=== PATIENT | male | born 1995 | race Caucasian/White ===

== ENCOUNTER 2024-08-30 14:50 | Observation (INO) | payer MEDICARE ==
--- NOTE | 2024-08-30 15:32 | ED ---
Skin/Abscess/FB HPI - General Chief complaint: Skin/Abscess/Foreign Body Stated complaint: Spider Bite Time Seen by Provider: 08/30/24 15:04 Source: patient, RN notes reviewed, Caregiver Mode of arrival: ambulatory Limitations: no limitations - History of Present Illness Initial comments: This is a 28-year-old male presenting for episodes of right wrist x 4 days. Patient states he was bitten by an insect while sleeping Wednesday morning with worsening erythema and edema surrounding bite since that time. Patient endorses going to [facility] yesterday where the abscess was expressed and packed. Patient states he was provided IV clindamycin and discharged with clindamycin regiment, which he has been taking. Patient states like you are on did not o btain a wound culture at the time and that abscess is worsening with increasing erythema, red streaking and additional purulent discharge. Patient states his PCP was concerned for possible brown recluse bite. Denies fever, chills, fatigue, chest pain, dyspnea, abdominal pain, N/V/D. MD complaint: insect bite/sting, abscess/boil Onset/Timin -: days(s) - Related Data Home Medications Medication Instructions Recorded Confirmed Cholecalciferol (Vitamin D3) 50 mcg PO DAILY 08/30/24 08/30/24 [Vitamin D3 (50 Mcg = 2000 Iu)] Clindamycin Topical Soln 1 applic TOPICAL BID 08/30/24 08/30/24 [Cleocin-T Topical Soln] Mirtazapine [Remeron] 15 mg PO HS 08/30/24 08/30/24 clindamycin HCL [Cleocin] 150 mg PO Q8H 08/30/24 08/30/24 Allergies Allergy/AdvReac Type Severity Reaction Status Date / Time No Known Allergies Allergy Verified 08/30/24 18:00 Review of Systems ROS Statement: Those systems with pertinent positive or pertinent negative responses have been documented in the HPI. ROS Other: All systems not noted in ROS Statement are negative. Past Medical History Past Medical History: No Reported History Additional Past Medical History / Comment(s): intellectual disability History of Any Multi-Drug Resistant Organisms: None Reported Past Surgical History: No Surgical Hx Reported Past Psychological History: Depression Smoking Status: Never smoker Past Alcohol Use History: None Reported Past Drug Use History: None Reported General Exam Limitations: no limitations General appearance: alert, in no apparent distress Head exam: Present: atraumatic, normocephalic, normal inspection Eye exam: Present: normal appearance, PERRL, EOMI. Absent: scleral icterus, conjunctival injection, periorbital swelling ENT exam: Present: normal exam, mucous membranes moist Neck exam: Present: normal inspection. Absent: tenderness, meningismus, lymphadenopathy Respiratory exam: Present: normal lung sounds bilaterally. Absent: respiratory distress, wheezes, rales, rhonchi, stridor Cardiovascular Exam: Present: regular rate, normal rhythm, normal heart sounds. Absent: systolic murmur, diastolic murmur, rubs, gallop, clicks GI/Abdominal exam: Present: soft, normal bowel sounds. Absent: distended, tenderness, guarding, rebound, rigid Extremities exam: Present: full ROM, tenderness, normal capillary refill, other (Right dorsal wrist: Dark erythema surrounding 1 cm circular open wound with extensive erythema spreading to hand and to mid forearm. Purulent discharge noted from opening and moderate edema of dorsal hand noted. No obvious red streaking, pain with passive wrist flexion. Distal neurovascular intact). Absent: pedal edema, joint swelling, calf tenderness Back exam: Present: normal inspection Neurological exam: Present: alert, oriented X3, CN II-XII intact Psychiatric exam: Present: normal affect, normal mood Skin exam: Present: warm, dry, intact, normal color. Absent: rash Course Vital Signs 08/30/24 08/30/24 14:51 16:58 Temperature 97.5 F L 99.6 F Pulse Rate 108 H 103 H Respiratory 16 18 Rate Blood Pressure 133/92 139/89 O2 Sat by Pulse 96 97 Oximetry Procedures - Incision & Drainage Consent Obtained: verbal consent Indication: Abscess Site: upper extremity Size (cm): 4 Sterile Field Used?: No Ultrasound used: No Needle Aspiration Performed?: No Irrigation Performed?: Yes I&D Drainage Obtained: Pus, Blood Insertion of drain: No Culture Obtained?: Yes Patient Tolerated Procedure: well, no complications Medical Decision Making - Medical Decision Making Was pt. sent in by a medical professional or institution (, PA, MANAGER OF FINANCIAL, urgent care, hospital, or assisted...) When possible be specific @ -No Did you speak to anyone other than the patient for history (EMS, parent, family, police, friend...)? What history was obtained from this source @ -No Did you review nursing and triage notes (agree or disagree)? Why? @ -I reviewed and agree with nursing and triage notes Were old charts reviewed (outside hosp., previous admission, EMS record, old EKG, old radiological studies, urgent care reports/EKG's, assisted records)? Report findings @ -No old charts were reviewed Differential Diagnosis (chest pain, altered mental status, abdominal pain women, abdominal pain men, vaginal bleeding, weakness, fever, dyspnea, syncope, headache, dizziness, GI bleed, back pain, seizure, CVA, palpatations, mental health, musculoskeletal)? @ -Differential Musculoskeletal Muscular strain, contusion, ligament sprain, fracture, arthritis, septic arthritis, bursitis, cellulitis, muscle spasm, nerve compression, DVT, arterial occlusion, herpes zoster, electrolyte abnormality, tumor.... This is not meant to be in all inclusive list EKG interpreted by me (3pts min.). @ -Not done X-rays interpreted by me (1pt min.). @ -Right wrist x-ray shows fairly severe soft tissue swelling along dorsum of wrist without retained radiopaque foreign body or underlying osseous abnormality. CT interpreted by me (1pt min.). @ -None done U/S interpreted by me (1pt. min.). @ -None done What testing was considered but not performed or refused? (CT, X-rays, U/S, labs)? Why? @ -None What meds were considered but not given or refused? Why? @ -None Did you discuss the management of the patient with other professionals (professionals i.e. , PA, MANAGER OF FINANCIAL, lab, RT, psych nurse, high school social studies teacher, gasser machine operator, teacher, hydrographical technical officer, shoe parts caser)? Give summary @ -Spoke to Mary Ann Horvath from [facility] who advised consult with Dr. Can. Was smoking cessation discussed for >3mins.? @ -No Was critical care preformed (if so, how long)? @ -No Were there social determinants of health that impacted care today? How? (Homelessness, low income, unemployed, alcoholism, drug addiction, transportation, low edu. Level, literacy, decrease access to med. care, fpc, rehab)? @ -No Was there de-escalation of care discussed even if they declined (Discuss DNR or withdrawal of care, Hospice)? DNR status @ -No What co-morbidities impacted this encounter? (DM, HTN, Smoking, COPD, CAD, Cancer, CVA, ARF, Chemo, Hep., AIDS, mental health diagnosis, sleep apnea, morbid obesity)? @ -None Was patient admitted / discharged? Hospital course, mention meds given and route, prescriptions, significant lab abnormalities, going to OR and other pertinent info. @ -Right wrist x-ray shows significant soft tissue edema without any other concerning findings. Open wound/abscess squeezed with large amount of thick purulent material and blood expressed. Abscess flushed copiously with sterile water and aerobic wound culture obtained. 4 x 4 gauze placed over top of wound and wrapped with Kerlix roll. [facility] contacted due to severity of infection and recalcitrant nature despite appropriate antibiotic use. Spoke to Mary Ann Horvath from [facility] who advised consult with Dr. Can. Patient started on IV vancomycin and Unasyn. Discussed patient with Dr. Nuñez. Undiagnosed new problem with uncertain prognosis? @ -No Drug Therapy requiring intensive monitoring for toxicity (Heparin, Nitro, Insulin, Cardizem)? @ -No Were any procedures done? @ -Abscess drainage performed. See procedure note Diagnosis/symptom? @ -Insect bite, abscess, possible MRSA Acute, or Chronic, or Acute on Chronic? @ -Acute Uncomplicated (without systemic symptoms) or Complicated (systemic symptoms)? @ -Uncomplicated Side effects of treatment? @ -No Exacerbation, Progression, or Severe Exacerbation? @ -Progression Poses a threat to life or bodily function? How? (Chest pain, [place], [place], pneumonia, PE, COPD, DKA, ARF, appy, cholecystitis, CVA, Diverticulitis, Homicidal, Suicidal, threat to staff... and all critical care pts) @ -No Disposition Clinical Impression: Cutaneous abscess of right wrist Disposition: ADMITTED IP TO THIS [facility] Condition: Fair Instructions (If sedation given, give patient instructions): Abscess Incision and Drainage (ED) Is patient prescribed a controlled substance at d/c from ED?: No Referrals: Chiqui Hooker FNPBC [Primary Care Provider] - 1-2 days Time of Disposition: 17:23 Decision Date: 08/30/24 Decision Time: 17:23
[2024-08-30] MEDS: KETOROLAC 15 MG/ML 1 ML VIAL IM STA (16:02)
--- NOTE | 2024-08-30 16:31 | XR ---
EXAMINATION TYPE: XR wrist complete RT DATE OF EXAM: 08/30/2024 4:14 PM COMPARISON: None CLINICAL INDICATION: Male, 28 years old with history of Insect bite, worsening abscess; PHH, pain TECHNIQUE: 4 views FINDINGS: Some soft tissue swelling about the wrist. Radiocarpal and distal radioulnar joint as well as the met acarpal compartment appear intact. The degree of soft tissue swelling is fairly severe along the dors um of the wrist. No retained radiopaque foreign body. IMPRESSION: Soft tissue swelling, fairly severe along the dorsum of the wrist. No underlying acute osseous abnorm ality seen. [facility], Workstation: [facility], 08/30/2024 4:28 PM
[2024-08-30] MEDS ORDERED: VANCOMYCIN 1,000 MG in SODIUM CHLORIDE 0.9% 250 ML IVPB STA (18:27)
[2024-08-30] MEDS ORDERED: MORPHINE SULFATE 4 MG/ML SYRINGE IV PRN (18:29)
[2024-08-30] MEDS ORDERED: ACETAMINOPHEN TAB 325 MG TAB PO PRN (18:29)
[2024-08-30] MEDS ORDERED: NALOXONE 0.4 MG/ML 1 ML VIAL IV PRN (18:29)
[2024-08-30] MEDS ORDERED: KETOROLAC 15 MG/ML 1 ML VIAL IVP PRN (18:29)
[2024-08-30] MEDS ORDERED: VANCOMYCIN IV PER PHARMACY 1 EACH MISC MISCELLANE PRN (18:32)
[2024-08-30 18:57] LABS: Basophils # (A) 0.06 10*3/uL (0.00-0.10); Basophils % (A) 0.5 %; Eosinophils # (A) 0.11 10*3/uL (0.04-0.35); Eosinophils % (A) 0.9 %; HCT 42.9 % (39.6-50.0); HGB 15.3 g/dL (13.0-17.0); Lymphocytes # (A) 1.55 10*3/uL (0.90-5.00); Lymphocytes % (A) 12.4 %; MCH 29.4 pg (27.0-32.0); MCHC 35.7 g/dL (32.0-37.0); MCV 82.3 fL (80.0-97.0); Mean Platelet Volume 10.1 fL (9.5-12.2); Monocytes # (A) 0.93 10*3/uL (0.20-1.00); Monocytes % (A) 7.5 %; Neutrophils # (A) 9.76 10*3/uL (1.80-7.70); Neutrophils % (A) 78.4 %; Platelet Count 237 10*3/uL (140-440); RBC 5.21 10*6/uL (4.40-5.60); RDW 11.9 % (11.5-14.5); WBC 12.45 10*3/uL (4.50-10.00)
[2024-08-30] MEDS: SODIUM CHLORIDE 0.9% 1,000 ML IV STA (19:02)
[2024-08-30] MEDS: AMPICILLIN-SULBACTAM 3 GM in SODIUM CHLORIDE 0.9% 100 ML IVPB ONE (19:02)
[2024-08-30 19:09] LABS: ALT 16 U/L (4-49); AST 17 U/L (17-59); African American GFR (CKD) >90 (>60 ml/min/1.73 sqM); Albumin 4.4 g/dL (3.5-5.0); Alkaline Phosphatase 72 U/L (38-126); Anion Gap 11 mmol/L; Blood Urea Nitrogen 15 mg/dL (9-20); Calcium 9.3 mg/dL (8.4-10.2); Carbon Dioxide 21 mmol/L (22-30); Chloride 107 mmol/L (98-107); Glucose 152 mg/dL (74-99); Non-African American GFR(CKD) >90 (>60 ml/min/1.73 sqM); Potassium 3.7 mmol/L (3.5-5.1); Sodium 139 mmol/L (137-145); Total Bilirubin 1.2 mg/dL (0.2-1.3); Total Protein 7.6 g/dL (6.3-8.2)
[2024-08-30] MEDS: VANCOMYCIN 1,500 MG in SODIUM CHLORIDE 0.9% 500 ML 500 ML IVPB ONE (19:51)
[2024-08-30] MEDS: MIRTAZAPINE 15 MG TAB PO SCH (20:49)
[2024-08-30] MEDS: AMPICILLIN-SULBACTAM 3 GM in SODIUM CHLORIDE 0.9% 100 ML IVPB SCH (23:58)
[2024-08-31 03:57] LABS: African American GFR (CKD) >90 (>60 ml/min/1.73 sqM); Non-African American GFR(CKD) >90 (>60 ml/min/1.73 sqM)
[2024-08-31] MEDS: VANCOMYCIN 1,500 MG in SODIUM CHLORIDE 0.9% 500 ML 500 ML IVPB SCH (05:30)
--- NOTE | 2024-08-31 15:17 | P.HPIM ---
History of Present Illness H&P Date: 08/31/24 This is a pleasant 28 year old male with intellectual disability; who comes in with failed outpatient antibiotic therapy. States last wednesday he woke up from sleeping on the couch and noted to have a puncture bite on the right wrist thought it was likely a spider bite. He monitored and began noticing streaky redness up the arm and development of swelling at the puncture site. He was at [facility] ER yesterday for I and D and was given clindamycin and discharged home. The wound did not improve and had worsening drainage at the site. He presents to the [facility] ER and he got cultured which is currently showing MRSA. The redness is up the right arm and there is an open draining woun d on the right wrist. There is purulent drainage. White blood cell count 12.45; no fever noted. He is currently on combination of IV unasyn and IV vancomycin. Infectious disease was consulted for further management of antibiotic therapy. REVIEW OF SYSTEMS: CONSTITUTIONAL: No fever, no malaise, no fatigue. HEENT: No recent visual problems or hearing problems. Denied any sore throat. CARDIOVASCULAR: No chest pain, orthopnea, PND, no palpitations, no syncope. PULMONARY: No shortness of breath, no cough, no hemoptysis. GASTROINTESTINAL: No diarrhea, no nausea, no vomiting, no abdominal pain. NEUROLOGICAL: No headaches, no weakness, no numbness. HEMATOLOGICAL: Denies any bleeding or petechiae. GENITOURINARY: Denies any burning micturition, frequency, or urgency. MUSCULOSKELETAL/RHEUMATOLOGICAL: Denies any joint pain, swelling, or any muscle pain. Reports wound to right wrist with redness and swelling ENDOCRINE: Denies any polyuria or polydipsia. The rest of the 14-point review of systems is negative. PHYSICAL EXAMINATION: GENERAL: The patient is alert and oriented x3, not in any acute distress. Well developed, well nourished. HEENT: Pupils are round and equally reacting to light. EOMI. No scleral icterus. No conjunctival pallor. Normocephalic, atraumatic. No pharyngeal erythema. No thyromegaly. CARDIOVASCULAR: S1 and S2 present. No murmurs, rubs, or gallops. PULMONARY: Chest is clear to auscultation, no wheezing or crackles. ABDOMEN: Soft, nontender, nondistended, normoactive bowel sounds. No palpable organomegaly. MUSCULOSKELETAL: No joint swelling or deformity. EXTREMITIES: No cyanosis, clubbing, or pedal edema. NEUROLOGICAL: Gross neurological examination did not reveal any focal deficits. SKIN: No rashes. Erythema to right wrist with central ulceration with purulent drainage and streaking up the forearm Assessment and Plan Cellulitis of right wrist with purulent drainage and cultures showing MRSA; failed outpatient therapy Leukocytosis secondary to above Intellectual disability GI prophylaxis Full Code Plan Continue IV antibiotics with IV unasyn; and IV vancomycin Pending final cultures and sensitivities ID consulted Monitor area of erythema and redness The impression and plan of care has been dictated by Nurse Polly Mann as directed. Dr. Veronica MD I have performed a history and physical examination and medical decision making of this patient, discussed the same with the dictator, and agree with the dict ators assessment and plan as written, documented as a scribe. Based on total visit time, I have performed more than 50% of this visit. Past Medical History Past Medical History: No Reported History Additional Past Medical History / Comment(s): intellectual disability History of Any Multi-Drug Resistant Organisms: None Reported Past Surgical History: No Surgical Hx Reported Past Anesthesia/Blood Transfusion Reactions: No Reported Reaction Smoking Status: Never smoker Medications and Allergies Home Medications Medication Instructions Recorded Confirmed Type Cholecalciferol (Vitamin D3) 50 mcg PO DAILY 08/30/24 08/30/24 History [Vitamin D3 (50 Mcg = 2000 Iu)] Clindamycin Topical Soln 1 applic TOPICAL BID 08/30/24 08/30/24 History [Cleocin-T Topical Soln] Mirtazapine [Remeron] 15 mg PO HS 08/30/24 08/30/24 History clindamycin HCL [Cleocin] 150 mg PO Q8H 08/30/24 08/30/24 History Allergies Allergy/AdvReac Type Severity Reaction Status Date / Time No Known Allergies Allergy Verified 08/30/24 18:00 Physical Exam Vitals: Vital Signs Temp Pulse Pulse Resp BP BP Pulse Ox 08/31/24 07:00 99.4 F 84 17 106/56 97 08/31/24 02:00 98.7 F 91 17 101/60 98 08/30/24 22:07 75 16 128/78 100 08/30/24 18:55 88 16 130/89 99 08/30/24 16:58 99.6 F 103 H 18 139/89 97 08/30/24 14:51 97.5 F L 108 H 16 133/92 96 Intake and Output 08/30/24 08/31/24 08/31/24 22:59 06:59 14:59 Other: Voiding Method Toilet # Voids 1 Weight 78.471 kg Results CBC & Chem 7: 08/30/24 18:50 08/31/24 03:09 Labs: Abnormal Lab Results - Last 24 Hours (Table) 08/30/24 08/30/24 Range/Units 18:50 18:50 WBC 12.45 H (4.50-10.00) 10*3/uL Neutrophils # 9.76 H (1.80-7.70) 10*3/uL Carbon Dioxide 21 L (22-30) mmol/L Glucose 152 H (74-99) mg/dL Microbiology - Last 24 Hours (Table) 08/30/24 15:39 Gram Stain - Preliminary Wrist - Right Wound Culture - Preliminary Presumptive MRSA Thrombosis Risk Factor Assmnt - Choose All That Apply Any of the Below Risk Factors Present?: No Other Risk Factors: No Other congenital or acquired thrombophilia - If yes, enter type in comment: No Thrombosis Risk Factor Assessment Level: Very Low Risk Assessment and Plan Time with Patient: Less than 30
--- NOTE | 2024-08-31 19:44 | P.CONS ---
History of Present Illness - Reason for Consult Consult date: 08/31/24 Right wrist abscess Requesting physician: Dewayne New - Chief Complaint Right wrist forearm pain swelling and redness x few days - History of Present Illness Patient is a 28-year-old male with past medical history significant for intellectual disability presented to the hospital for evaluation of increasing swelling and redness to right upper extremity patient mention Wednesday morning he woke up on the couch and noticed a puncture bite on the right wrist area subsequently had the area becoming more swollen red and painful for the patient was seen in [facility] ER. The patient did have I&D and discharge home on clindamycin however the patient did not have any improvement further worsening swelling redness for the patient presented to [facility] ER patient denies high-grade fever did have some chills denies any chest pain shortness of breath or cough patient complaining of pain to right upper extremity sharp moderate intense without radiation and did have mild drainage on presentation to the hospital patient did have 1 low-grade fever of 99.6 degrees for night patient was not significant tachycardic hypotensive or hypoxic he did have white count 4.45 creatinine 0.90 electrolytes has been normal liver enzymes are normal patient is currently being treated with vancomycin and Unasyn local culture growing presumptive MRSA infectious disease was consulted for further management of antibiotic therapy Review of Systems Positive point and negatives has been mentioned in the HPI, complete review of systems was performed and all other systems are negative Past Medical History Past Medical History: No Reported History Additional Past Medical History / Comment(s): intellectual disability History of Any Multi-Drug Resistant Organisms: None Reported Past Surgical History: No Surgical Hx Reported Past Anesthesia/Blood Transfusion Reactions: No Reported Reaction Smoking Status: Never smoker Medications and Allergies Home Medications Medication Instructions Recorded Confirmed Type Cholecalciferol (Vitamin D3) 50 mcg PO DAILY 08/30/24 08/30/24 History [Vitamin D3 (50 Mcg = 2000 Iu)] Clindamycin Topical Soln 1 applic TOPICAL BID 08/30/24 08/30/24 History [Cleocin-T Topical Soln] Mirtazapine [Remeron] 15 mg PO HS 08/30/24 08/30/24 History clindamycin HCL [Cleocin] 150 mg PO Q8H 08/30/24 08/30/24 History Allergies Allergy/AdvReac Type Severity Reaction Status Date / Time No Known Allergies Allergy Verified 08/30/24 18:00 Physical Exam Vitals: Vital Signs Temp Pulse Pulse Resp BP BP Pulse Ox 08/31/24 09:54 84 17 08/31/24 07:00 99.4 F 84 17 106/56 97 08/31/24 02:00 98.7 F 91 17 101/60 98 08/30/24 22:07 75 16 128/78 100 08/30/24 18:55 88 16 130/89 99 08/30/24 16:58 99.6 F 103 H 18 139/89 97 08/30/24 14:51 97.5 F L 108 H 16 133/92 96 Intake and Output 08/30/24 08/31/24 08/31/24 22:59 06:59 14:59 Other: Voiding Method Toilet Toilet # Voids 1 Weight 78.471 kg GENERAL DESCRIPTION: Young male lying in bed, no distress. No tachypnea or accessory muscle of respiration use. HEENT: Shows Pallor , no scleral icterus. Oral mucous membrane is dry. NECK: Trachea central, no thyromegaly. LUNGS: Unlabored breathing. Clear to auscultation anteriorly. No wheeze or crackle. HEART: S1, S2, regular rate and rhythm. No loud murmur ABDOMEN: Soft, no tenderness , guarding or rigidity, no organomegaly EXTREMITIES: Right wrist on the dorsal aspect did have a wound with some purulent drainage with swelling redness that is extending to the forearm SKIN: No rash, no masses palpable. NEUROLOGICAL: The patient is awake, alert, oriented x3, mood and affect normal. Results CBC & Chem 7: 08/30/24 18:50 08/31/24 03:09 Labs: Abnormal Lab Results - Last 24 Hours (Table) 08/30/24 08/30/24 Range/Units 18:50 18:50 WBC 12.45 H (4.50-10.00) 10*3/uL Neutrophils # 9.76 H (1.80-7.70) 10*3/uL Carbon Dioxide 21 L (22-30) mmol/L Glucose 152 H (74-99) mg/dL Microbiology - Last 24 Hours (Table) 08/30/24 15:39 Gram Stain - Preliminary Wrist - Right Wound Culture - Preliminary Presumptive MRSA Assessment and Plan (1) MRSA (methicillin resistant staph aureus) culture positive Current Visit: Yes Status: Acute Code(s): Z22.322 - CARRIER OR SUSPECTED CARRIER OF METHICILLIN RESIS STAPH SNOMED Code(s): 713589160 (2) Leukocytosis Current Visit: Yes Status: Acute Code(s): D72.829 - ELEVATED WHITE BLOOD CELL COUNT, UNSPECIFIED SNOMED Code(s): 651628437 (3) Cutaneous abscess of right wrist Current Visit: Yes Status: Acute Code(s): L02.413 - CUTANEOUS ABSCESS OF RIGHT UPPER LIMB SNOMED Code(s): 94887581863872811 Plan: 1patient presented to hospital with increasing pain swelling redness to the wrist area with redness extending to the forearm concerning for an abscess and cellulitis secondary to MRSA failing outpatient oral clindamycin therapy. 2elevated white count more likely related to the right wrist abscess and forearm cellulitis. 3patient will be treated with vancomycin pharmacy to dose however discontinue Unasyn 4discharge antibiotic on the basis of clinical response and finalization of the culture data We will follow on clinical condition and cultures to further adjust medication if needed Thank you for this consultation we will follow the patient along with you Dictation was produced using [employer] dictation software. please excuse any grammatical, word or spelling errors. Time with Patient: Greater than 30
[2024-09-01 03:17] LABS: African American GFR (CKD) >90 (>60 ml/min/1.73 sqM); Non-African American GFR(CKD) >90 (>60 ml/min/1.73 sqM)
[2024-09-01] MEDS: VANCOMYCIN TROUGH DUE 1 EACH MISC MISCELLANE ONE (04:02)
--- NOTE | 2024-09-01 10:02 | P.PN ---
Subjective Progress Note Date: 09/01/24 Principal diagnosis: Reason for follow-up is right wrist abscess and cellulitis Patient is a 28-year-old male with past medical history significant for intellectual disability presented to the hospital for evaluation of increasing swelling and redness to right upper extremity, patient diagnosed with right wrist abscess with secondary cellulitis culture positive for MRSA. On today's evaluation that is 09/01/2024, Patient is afebrile patient is currently on room air and denies having any shortness of breath, the patient denies any chest pain or cough, the patient denies any nausea vomiting did not have any abdominal pain and no diarrhea patient pain and swelling to the right upper extremity slightly decreased. Patient did have a creatinine 0.77 culture with MRSA that is resistant to clindamycin Objective - Vital Signs Vital signs: Vital Signs Temp 98.5 F 09/01/24 02:00 Pulse 73 09/01/24 02:00 Resp 16 09/01/24 02:00 BP 110/72 09/01/24 02:00 Pulse Ox 98 09/01/24 02:00 FiO2 Intake & Output 08/31/24 09/01/24 09/01/24 18:59 06:59 18:59 Intake Total 100 1000 Balance 100 1000 Intake: Intake, IV Titration 1000 Amount Vancomycin 1,500 mg In 1000 Sodium Chloride 0.9% 500 ml 500 ml @ 167 mls/hr IVPB Q8H [facility] Rx#: [id number] Oral 100 Other: Voiding Method Toilet # Voids 1 - Exam GENERAL DESCRIPTION: Young male lying in bed in no distress RESPIRATORY SYSTEM: Unlabored breathing , decreased breath sounds at bases HEART: S1 S2 regular rate and rhythm , ABDOMEN: Soft , no tenderness EXTREMITIES: Right wrist area wound is currently dressed overall redness has decreased minimal drainage of the dressing - Labs CBC & Chem 7: 08/30/24 18:50 09/01/24 02:47 Labs: Microbiology - Last 24 Hours (Table) 08/30/24 15:39 Gram Stain - Final Wrist - Right Wound Culture - Final Methicillin resist S. aureus 08/30/24 18:50 Blood Culture - Preliminary Blood Assessment and Plan (1) MRSA (methicillin resistant staph aureus) culture positive Current Visit: Yes Status: Acute Code(s): Z22.322 - CARRIER OR SUSPECTED CARRIER OF METHICILLIN RESIS STAPH SNOMED Code(s): 469230547 (2) Leukocytosis Current Visit: Yes Status: Acute Code(s): D72.829 - ELEVATED WHITE BLOOD CELL COUNT, UNSPECIFIED SNOMED Code(s): 574578826 (3) Cutaneous abscess of right wrist Current Visit: Yes Status: Acute Code(s): L02.413 - CUTANEOUS ABSCESS OF RIGHT UPPER LIMB SNOMED Code(s): 40943048920496807 Plan: 1patient presented to hospital with increasing pain swelling redness to the wrist area with redness extending to the forearm concerning for an abscess and cellulitis secondary to MRSA failing outpatient oral clindamycin therapy. 2elevated white count more likely related to the right wrist abscess and forearm cellulitis. 3local culture growing MRSA recommend to continue the patient on IV vancomycin for another 24-hour before transitioning to oral antibiotics and to make sure that blood culture are negative Dictation was produced using [employer] dictation software. please excuse any grammatical, word or spelling errors.
--- NOTE | 2024-09-01 14:19 | P.PN ---
Subjective Progress Note Date: 09/01/24 This is a pleasant 28 year old male with intellectual disability; who comes in with failed outpatient antibiotic therapy. States last wednesday he woke up from sleeping on the couch and noted to have a puncture bite on the right wrist thought it was likely a spider bite. He monitored and began noticing streaky redness up the arm and development of swelling at the puncture site. He was at [facility] ER yesterday for I and D and was given clindamycin and discharged home. The wound did not improve and had worsening drainage at the site. He presents to the [facility] ER and he got cultured which is currently showing MRSA. The redness is up the right arm and there is an open draining wound on the right wrist. There is purulent drainage. White blood cell count 12.45; no fever noted. He is currently on combination of IV unasyn and IV vancomycin. Infectious disease was consulted for further management of antibiotic therapy. 09/01/2024 Patient evaluated today in follow up. Blood cultures are still pending negative so far. Wound culture has finalized revealing MRSA which has resistance to the clindamycin. ID recommending 1 more day of IV antibiotics and will be able to discharge home on a oral antibiotic as long as blood culture remains negative. REVIEW OF SYSTEMS: CONSTITUTIONAL: No fever, no malaise, no fatigue. HEENT: No recent visual problems or hearing problems. Denied any sore throat. CARDIOVASCULAR: No chest pain, orthopnea, PND, no palpitations, no syncope. PULMONARY: No shortness of breath, no cough, no hemoptysis. GASTROINTESTINAL: No diarrhea, no nausea, no vomiting, no abdominal pain. NEUROLOGICAL: No headaches, no weakness, no numbness. PHYSICAL EXAMINATION: GENERAL: The patient is alert and oriented x3, not in any acute distress. Well developed, well nourished. HEENT: Pupils are round and equally reacting to light. EOMI. No scleral icterus. No conjunctival pallor. Normocephalic, atraumatic. No pharyngeal erythema. No thyromegaly. CARDIOVASCULAR: S1 and S2 present. No murmurs, rubs, or gallops. PULMONARY: Chest is clear to auscultation, no wheezing or crackles. ABDOMEN: Soft, nontender, nondistended, normoactive bowel sounds. No palpable organomegaly. MUSCULOSKELETAL: No joint swelling or deformity. EXTREMITIES: No cyanosis, clubbing, or pedal edema. NEUROLOGICAL: Gross neurological examination did not reveal any focal deficits. SKIN: No rashes. Erythema to right wrist with central ulceration with purulent drainage and streaking up the forearm; redness improving. Assessment and Plan Cellulitis of right wrist with purulent drainage and cultures showing MRSA; failed outpatient therapy Leukocytosis secondary to above Intellectual disability GI prophylaxis Full Code Plan Continue IV antibiotics with IV unasyn; and IV vancomycin Pending final cultures and sensitivities Once blood cultures are final and negative patient will be cleared for discharge ID consulted Monitor area of erythema and redness The impression and plan of care has been dictated by Mary Ann Herbert Nurse Practitioner as directed. Dr. Veronica MD I have performed a history and physical examination and medical decision making of this patient, discussed the same with the dictator, and agree with the dictators assessment and plan as written, documented as a scribe. Based on total visit time, I have performed more than 50% of this visit. Objective - Vital Signs Vital signs: Vital Signs Temp 98.3 F 09/01/24 08:00 Pulse 81 09/01/24 13:51 Resp 16 09/01/24 13:51 BP 145/79 09/01/24 08:00 Pulse Ox 98 09/01/24 08:00 FiO2 Intake & Output 08/31/24 09/01/24 09/01/24 18:59 06:59 18:59 Intake Total 100 1000 200 Balance 100 1000 200 Intake: Intake, IV Titration 1000 Amount Vancomycin 1,500 mg In 1000 Sodium Chloride 0.9% 500 ml 500 ml @ 167 mls/hr IVPB Q8H [facility] Rx#: [id number] Oral 100 200 Other: Voiding Method Toilet Toilet # Voids 1 1 - Labs CBC & Chem 7: 08/30/24 18:50 09/01/24 02:47 Labs: Microbiology - Last 24 Hours (Table) 08/30/24 15:39 Gram Stain - Final Wrist - Right Wound Culture - Final Methicillin resist S. aureus 08/30/24 18:50 Blood Culture - Preliminary Blood Assessment and Plan Time with Patient: Less than 30
[2024-09-01] MEDS: VANCOMYCIN 1,250 MG in SODIUM CHLORIDE 0.9% 250 ML IVPB SCH (15:30)
[2024-09-02 01:46] VITALS: PULSE 71; RESP 16
[2024-09-02 08:06] VITALS: BP 134/81; TEMP 97.6
[2024-09-02 10:14] LABS: BUN/Creat Ratio 11.44 Ratio (12.00-20.00); Blood Urea Nitrogen 10.3 mg/dL (9.0-27.0); Carbon Dioxide 23.7 mmol/L (21.6-31.8); Chloride 107 mmol/L (96-109); Glucose 99 mg/dL (70-110); Potassium 4.2 mmol/L (3.5-5.5); Sodium 141 mmol/L (135-145)
[2024-09-02 10:20] LABS: Basophils # (A) 0.07 X 10*3/uL (0.00-0.10); Basophils % (A) 1.1 %; Eosinophils # (A) 0.57 X 10*3/uL (0.04-0.35); Eosinophils % (A) 9.1 %; HCT 42.8 % (39.6-50.0); HGB 14.4 g/dL (13.0-17.0); Lymphocytes # (A) 1.91 X 10*3/uL (0.90-5.00); Lymphocytes % (A) 30.5 %; MCH 29.2 pg (27.0-32.0); MCHC 33.6 g/dL (32.0-37.0); MCV 86.8 FL (80.0-97.0); Mean Platelet Volume 12.1 FL (9.5-12.2); Monocytes # (A) 0.67 X 10*3/uL (0.20-1.00); Monocytes % (A) 10.7 %; NRBC Per 100 WBC 0 X 10*3/uL (0.00-0.01); Platelet Count 237 X 10*3/uL (140-440); RBC 4.93 X 10*6/uL (4.40-5.60); RDW 12.3 % (11.5-14.5); WBC 6.26 X 10*3/uL (4.50-10.00)
--- NOTE | 2024-09-02 15:42 | P.DS ---
Providers Date of admission: 08/30/24 16:41 Attending physician: Roverto Augustine MD Consults: 08/30/24 18:29 Consult Physician Stat Consulting Provider: Steven Can Consult Reason/Comments: Recalcitrant right wrist abscess Do you want consulting provider notified?: Yes, Notify in am Primary care physician: Chiqui Hooker, [facility] Hospital Course: Final Diagnosis Cellulitis of right wrist with purulent drainage and cultures showing MRSA; failed outpatient therapy Leukocytosis secondary to above Intellectual disability Discharge Disposition Patient is stable for discharge home. Follow-up closely with infectious disease in the office in 1 week. Continue oral Bactrim for 10 days. Total time taken in discharge planning greater than 35 minutes. Hospital Course This is a pleasant 28 year old male with intellectual disability; who comes in with failed outpatient antibiotic therapy. States last wednesday he woke up from sleeping on the couch and noted to have a puncture bite on the right wrist th ought it was likely a spider bite. He monitored and began noticing streaky redness up the arm and development of swelling at the puncture site. He was at [facility] ER yesterday for I and D and was given clindamycin and discharged home. The wound did not improve and had worsening drainage at the site. He presents to the [facility] ER and he got cultured which is currently showing MRSA. The redness is up the right arm and there is an open draining wound on the right wrist. There is purulent drainage. White blood cell count 12.45; no fever noted. He is currently on combination of IV unasyn and IV vancomycin. Infectious disease was consulted for further management of antibiotic therapy. Cultures have come back showing MRSA with resistance to clindamycin. He was continued on antibiotic therapy for more night and his blood cultures have been negative. He will discharge on 10 days of oral Bactrim. Please see medication reconciliation for a list of current medications. Thank you for allowing us to participate in the care of this patient. The impression and plan of care has been dictated by Mary Ann Herbert, Nurse Practitioner as directed. Dr. Veronica MD I have performed a history and physical examination and medical decision making of this patient, discussed the same with the dictator, and agree with the dictators assessment and plan as written, documented as a scribe. Based on total visit time, I have performed more than 50% of this visit. Patient Condition at Discharge: Stable Plan - Discharge Summary Discharge Rx Participant: No New Discharge Prescriptions: New Sulfamethox-Tmp 800-160Mg [Bactrim DS 800-160 mg] 1 tab PO Q12HR 10 Days #20 tab Famotidine [Pepcid] 20 mg PO BID 10 Days #20 tablet Continue Cholecalciferol (Vitamin D3) [Vitamin D3 (50 Mcg = 2000 Iu)] 50 mcg PO DAILY Mirtazapine [Remeron] 15 mg PO HS Discontinued clindamycin HCL [Cleocin] 150 mg PO Q8H Clindamycin Topical Soln [Cleocin-T Topical Soln] 1 applic TOPICAL BID Discharge Medication List Cholecalciferol (Vitamin D3) [Vitamin D3 (50 Mcg = 2000 Iu)] 50 mcg PO DAILY 08/30/24 [History] Mirtazapine [Remeron] 15 mg PO HS 08/30/24 [History] Famotidine [Pepcid] 20 mg PO BID 10 Days #20 tablet 09/02/24 [Rx] Sulfamethox-Tmp 800-160Mg [Bactrim DS 800-160 mg] 1 tab PO Q12HR 10 Days #20 tab 09/02/24 [Rx] Follow up Appointment(s)/Referral(s): Chiqui Hooker FNPBC [Primary Care Provider] - 1-2 days (Office is closed at time of discharge. Please call for follow-up appointment.) Steven Can MD [STAFF PHYSICIAN] - 1 Week (Office is closed at time of discharge. Please call for follow-up appointment.) Patient Instructions/Handouts: MRSA (Methicillin-Resistant Staphylococcus Aureus) (DC), Abscess Incision and Drainage (ED) Activity/Diet/Wound Care/Special Instructions: Keep wound covered with gauze;band-aid Continue oral bactrim twice daily for 10 days Can take pepcid to avoid stomach upset from the bactrim Follow up with Dr Can in the office in 1 week Discharge Disposition: HOME SELF-CARE
[2024-09-03] MEDS ORDERED: VANCOMYCIN TROUGH DUE 1 EACH MISC MISCELLANE ONE (07:00)
--- NOTE | 2024-09-04 22:10 | P.PN ---
Subjective Progress Note Date: 09/02/24 Principal diagnosis: Reason for follow-up is right wrist abscess and cellulitis Patient is a 28-year-old male with past medical history significant for intellectual disability presented to the hospital for evaluation of increasing swelling and redness to right upper extremity, patient diagnosed with right wrist abscess with secondary cellulitis culture positive for MRSA. On today's evaluation that is 09/02/2024, patient has been afebrile, patient is breathing comfortably and is currently on room air, patient denies having any chest pain and cough, patient denies nausea vomiting or diarrhea and no abdominal pain patient pain to the right upper arm hand wrist area has decreased in intensity. The patient blood culture has been negative local culture with MRSA white count 6.26 creatinine 0.9 Objective - Vital Signs Vital signs: Vital Signs Temp 97.6 F 09/02/24 07:35 Pulse 71 09/02/24 08:20 Resp 16 09/02/24 08:20 BP 134/81 09/02/24 07:35 Pulse Ox 97 09/02/24 07:35 FiO2 Intake & Output 09/01/24 09/02/24 09/02/24 18:59 06:59 18:59 Intake Total 200 Balance 200 Intake: Oral 200 Other: Voiding Method Toilet Toilet Toilet # Voids 1 1 - Exam GENERAL DESCRIPTION: Young male lying in bed in no distress RESPIRATORY SYSTEM: Unlabored breathing , decreased breath sounds at bases HEART: S1 S2 regular rate and rhythm , ABDOMEN: Soft , no tenderness EXTREMITIES: Right wrist area wound is currently dressed overall redness has decreased minimal drainage of the dressing - Labs CBC & Chem 7: 09/02/24 03:49 09/02/24 03:49 Labs: Abnormal Lab Results - Last 24 Hours (Table) 09/02/24 09/02/24 Range/Units 03:49 03:49 Eosinophils # 0.57 H (0.04-0.35) X 10*3/uL BUN/Creatinine Ratio 11.44 L (12.00-20.00) Ratio Microbiology - Last 24 Hours (Table) 08/30/24 18:50 Blood Culture - Preliminary Blood Assessment and Plan (1) MRSA (methicillin resistant staph aureus) culture positive Status: Acute Code(s): Z22.322 - CARRIER OR SUSPECTED CARRIER OF METHICILLIN RESIS STAPH SNOMED Code(s): 490402148 (2) Leukocytosis Status: Acute Code(s): D72.829 - ELEVATED WHITE BLOOD CELL COUNT, UNSPECIFIED SNOMED Code(s): 991607961 (3) Cutaneous abscess of right wrist Status: Acute Code(s): L02.413 - CUTANEOUS ABSCESS OF RIGHT UPPER LIMB SNOMED Code(s): 04204900410095953 Plan: 1patient presented to hospital with increasing pain swelling redness to the wrist area with redness extending to the forearm concerning for an abscess and cellulitis secondary to MRSA failing outpatient oral clindamycin therapy. 2elevated white count more likely related to the right wrist abscess and forearm cellulitis. 3local culture growing MRSA, blood culture has been negative patient will be able to finish therapy with a 10-day course of oral Bactrim DS and close outpatient follow-up discussed with PHOTOENGRAVING SUPERVISOR for admitting team Dictation was produced using [employer] dictation software. please excuse any grammatical, word or spelling errors. Time with Patient: Less than 30
== END 2024-09-02 12:58 | disposition home or self-care (01) ==
LOC: EEVIPCON 14:50 → EC 14:50 → 1SOBS 16:41 → 4SSUR 09-01 16:44
PROVIDERS: ADMIT Internal Medicine; ATTEND Internal Medicine
DX: L03.113 Cellulitis of right upper limb (principal); B95.62 Methicillin resistant Staphylococcus aureus infection as the cause of diseases classified elsewhere; F32.A Depression, unspecified; F79 Unspecified intellectual disabilities; Z79.899 Other long term (current) drug therapy
CPT/HCPCS: 96366 ×5; 96365; 96367; 96372; 99285; 80053; 80048; 82565 ×2; 83605; 85025 ×2; 80202; 87040; 87070; 87205; 87077; 87186; 73110; G0378 ×4; J3370 ×4; J0295 ×2; J1885